=== PATIENT | female | born 1965 | race Caucasian/White ===

== ENCOUNTER 2017-06-24 10:04 | Observation (INO) | payer OTHER ==
[2017-06-24 10:41] LABS: #Eosinphils 0.4 thou/uL (0.0-0.7); #Lymphocytes 2.7 thou/uL (1.20-3.40); #Monocytes 0.9 thou/uL (0.11-0.59); #Neutrophils 5.5 thou/uL (1.40-6.50); %Basophils 0.5 % (0.0-1.0); %Eosinophils 4.6 % (0.0-10.0); %Lymphocytes 28.2 % (21.0-51.0); %Monocytes 9.4 % (0.0-10.0); Hematocrit 43.6 % (36.0-47.0); Mean Platelet Volume 6.8 fL (7.4-10.4); Red Blood Cell (RBC) Count 4.57 mill/uL (4.20-5.40); White Blood Cell (WBC) Count 9.5 thou/uL (4.8-10.8)
[2017-06-24 11:06] LABS: ALT (SGPT) 17 U/L (8-55); AST (SGOT) 16 U/L (5-34); Alkaline Phosphatase 74 U/L (40-150); Anion Gap 13 mmol/L (10-20); BUN (Urea Nitrogen) 14 mg/dL (9.8-20.1); Bilirubin, Total 0.4 mg/dL (0.2-1.2); CK (CPK) 61 U/L (29-168); Calc. Creatinine Clearance 0 mL/min (70-130); Calcium 9.9 mg/dL (7.8-10.44); Carbon Dioxide 24 mmol/L (22-29); Chloride 107 mmol/L (98-107); Estimated GFR-MDRD 70; Globulin 3.4 g/dL (2.4-3.5); Protein, Total 7.8 g/dL (6.0-8.3)
[2017-06-24 11:11] LABS: Troponin I Less than 0.010 ng/mL (< 0.028)
[2017-06-24] MEDS ORDERED: Acetaminophen 500 MG TAB ONE (11:46)
--- NOTE | 2017-06-24 12:03 | RAD ---
AP CHEST: Date: 06-24-17 Comparison: 04-18-12 FINDINGS: AP chest demonstrates the lungs to be well aerated. No evidence of active intrathoracic disease seen . No evidence of effusions, pneumonia or pneumothorax seen. IMPRESSION: Unremarkable AP chest. POS: [facility]
[2017-06-24] MEDS ORDERED: Ondansetron HCl/PF 4 MG/2 ML Vial IVP PRN (14:09)
[2017-06-24] MEDS ORDERED: Zolpidem Tartrate 5 MG TAB PO PRN (14:09)
[2017-06-24] MEDS ORDERED: Loperamide HCl 2 MG CAP PO PRN (14:09)
[2017-06-24] MEDS ORDERED: Loratadine 10 MG TAB PO PRN (14:09)
[2017-06-24] MEDS ORDERED: Eucerin (Mineral Oil/Petrolatum,White) 30 gm Jar TOP PRN (14:09)
[2017-06-24] MEDS ORDERED: Milk Of Magnesia 30 ML UDCUP PO PRN (14:09)
[2017-06-24] MEDS ORDERED: Nitroglycerin 0.4 MG TAB (25 Tab Bottle) SL PRN (14:09)
[2017-06-24] MEDS ORDERED: Ondansetron ODT 4 MG TAB PO PRN (14:09)
[2017-06-24] MEDS ORDERED: Diabetic Tussin 200 MG/10 ML UDCUP PO PRN (14:09)
[2017-06-24] MEDS ORDERED: Cyclobenzaprine 10 MG TAB PO PRN (14:09)
[2017-06-24] MEDS ORDERED: Senokot 8.6 MG TAB PO PRN (14:09)
[2017-06-24] MEDS ORDERED: Acetaminophen 325 MG TAB PO PRN (14:09)
[2017-06-24] MEDS ORDERED: Mag-Al 1200 mg/1200 mg/30 ML UDCUP PO PRN (14:09)
[2017-06-24] MEDS ORDERED: Sodium Chloride 0.65% Nasal 44 ML BOT EA NARE PRN (14:09)
--- NOTE | 2017-06-24 14:10 | HP ---
PRIMARY CARE PHYSICIAN: Flor Harris MD REASON FOR ADMISSION: Dizziness. HISTORY OF PRESENT ILLNESS: A 51-year-old female, who has underlying history of anxiety and depression, as well as chronic headache and hypothyroidism, who came from her workplace for dizziness. The patient reports that she was at work. She was talking to her coworker sudden she felt funny. She felt like she is going to as if in [place]. She was complaining of dizziness. She was feeling weakness. She did not have any focal motor or sensory symptoms on one or other extremity. She felt nausea and funny sensation in her chest. She was feeling weak and she rested in her chair, but after that she was able to go to nurse and nurse looked at her and she was advised to go to the emergency room. Her boss at workplace drove her to ER. The patient saw Dr. King couple of days ago and the patient was taking Inderal 20 mg p.o. daily, but the patient was advised to take metoprolol daily. The patient has not picked up metoprolol yet and she took Inderal 20 mg daily this morning. The patient also had MRI on 06/02/2017, which was also normal. The patient is having headaches are diffuse all the time. The patient denies any fever or chills. She denies any dyspnea on exertion. She denies any real syncope. She denies any palpitations. She denies any UTI symptoms. She denies any constipation, diarrhea, melena, or hematochezia. She denies any diaphoresis. She denies any blurred vision. REVIEW OF SYSTEMS: The following complete review of systems was negative, unless otherwise mentioned in the HPI or below: Constitutional: Weight loss or gain, ability to conduct usual activities. Skin: Rash, itching. Eyes: Double vision, pain. ENT/Mouth: Nose bleeding, neck stiffness, pain, tenderness. Cardiovascular: Palpitations, dyspnea on exertion, orthopnea. Respiratory: Shortness of breath, wheezing, cough, hemoptysis, fever or night sweats. Gastrointestinal: Poor appetite, abdominal pain, heartburn, nausea, vomiting, constipation, or diarrhea. Genitourinary: Urgency, frequency, dysuria, nocturia. Musculoskeletal: Pain, swelling. Neurologic/Psychiatric: Anxiety, depression. Allergy/Immunologic: Skin rash, bleeding tendency. Please see my HPI for pertinent positives and negatives. All other review of systems reviewed and negative except as mentioned in the HPI. PAST MEDICAL HISTORY: Hypertension, hypothyroidism, and history of seizure in 2017. PAST SURGICAL HISTORY: Hysterectomy. PAST PSYCHIATRIC HISTORY: Anxiety and depression. SOCIAL HISTORY: The patient drinks alcohol socially once a week. She denies any smoking. She denies any illicit drug abuse. She is working as a rn case management for disability. FAMILY HISTORY: No strong family history of premature coronary artery disease, stroke or cancer. ALLERGIES: CODEINE SULFATE, REGLAN and ULTRAM. CURRENT HOME MEDICATIONS: Cetirizine 10 mg daily, aspirin 81 mg p.o. daily, oxcarbazepine 150 mg twice daily, Prozac 10 mg p.o. daily, Flexeril 5 mg daily, Inderal 20 mg p.o. daily, and Synthroid 25 mcg p.o. daily. EMERGENCY ROOM COURSE: The patient is given aspirin 325 mg and Tylenol 1 gram. PHYSICAL EXAMINATION: VITAL SIGNS: On arrival, blood pressure 125/82, pulse is variable from 40 to 50 , respiratory rate 16, temperature 97.6, saturation 98% on room air, weight 82.1 kg. GENERAL: The patient is currently alert, awake, no obvious acute distress. HEENT: Head: Normocephalic, atraumatic. Eyes: Pupils round, reactive to light. Extraocular muscles are intact. ENT: Oropharynx within normal limits. Moist mucous membranes. No oral lesions. No pharyngeal erythema, no exudate. NECK: Supple. Range of motion is normal. No meningeal signs of irritation. LUNGS: Clear. CARDIAC: S1, S2, bradycardia. No murmur, no gallop, no rub. ABDOMEN: Soft, bowel sounds present, nontender, nondistended. No organomegaly , no mass, no suprapubic tenderness. BACK: Unremarkable, no CVA tenderness. EXTREMITIES: Upper extremity passive movement of all joints are normal. Lower extremities: No edema. Good peripheral pulsation. SKIN: No skin rash. HEMATOLOGIC: No lymphadenopathy. PSYCHIATRIC: Normal affect. NEUROLOGIC: Nonfocal examination. SIGNIFICANT LABS: EKG showing sinus bradycardia, no ischemic changes. Chest x- ray based on my review, no acute cardiopulmonary process. CBC: WBC 9.5, hemoglobin 14.3, platelets 302. BMP: Sodium 140, potassium 4.3, chloride 107, carbon dioxide 24, anion gap 13, BUN 14, creatinine 0.85, glucose 80, calcium 9.9. LFT: AST 16, ALT 17, alkaline phosphatase 74, albumin 4.4, CK 61, CK-MB 1.0, troponin I less than 0.010, BNP 48.2, lipase 19 and TSH 0.91. ASSESSMENT AND PLAN: 1. Acute dizziness. At this point, only objective finding based on investigation and physical examination is sinus bradycardia and her sinus bradycardia is likely related with the use of propranolol 20 mg daily, which she took this morning. Most likely medication related bradycardia may be contributing to her dizziness. Underlying orthostatic hypotension cannot be entirely excluded, less likely to be any tachycardia or any other arrhythmia. At this point, we will keep this patient in the hospital for observation and will monitor on telemetry floor. We will hold on propranolol therapy. We will do serial cardiac enzymes to rule out acute coronary syndrome. We will also check orthostatic vitals. 2. Chest discomfort. The patient also reported chest discomfort in the emergency room. Her cardiac enzymes negative. Her EKG is not showing any ischemic changes. We will do serial cardiac enzymes. We will consider doing exercise stress test today to rule out any ischemia. We will check lipid profile for risk stratification. 3. Hypertension. Currently, blood pressure runs normal, but if we have to start antihypertensive medication, then we will consider adding lisinopril rather than the beta-ele therapy because of her severe bradycardia. We will monitor vital signs in the hospital. Upon discharge, we will change her blood pressure medication to DIPTI inhibitor. We will also check orthostatic vitals. 4. Anxiety and depression. We will continue Prozac 10 mg p.o. daily. 5. History of seizure. The patient is on oxcarbazepine 150 mg twice daily, which we will continue. 6. History of chronic headache, most likely tension or stress headache. The patient will have a p.r.n. basis headache medication. 7. Hypothyroidism. We will continue Synthroid 25 mcg p.o. daily. 8. Deep venous thrombosis prophylaxis not needed because we are expecting discharge in 24 hours. 9. Gastrointestinal prophylaxis, Pepcid 20 mg p.o. b.i.d. 9. Code status: The patient is FULL CODE. The patient does not have any surrogate decision maker. Disposition plan based on clinical course likely within 24 hours. Plan of care discussed with the patient at bedside in the emergency room. LEANNA
[2017-06-24 14:19] VITALS: BMI 29.8
[2017-06-24 15:19] LABS: Troponin I Less than 0.010 ng/mL (< 0.028)
[2017-06-24] MEDS: HYDROcodone/Acetaminophen 5/325 mg Tablet PO PRN (17:00)
[2017-06-24 18:25] LABS: Troponin I Less than 0.010 ng/mL (< 0.028)
[2017-06-24] MEDS ORDERED: FLU VACC QS2017-18 36 mo. & older 0.5 ML SYRINGE IM ONE (21:00)
[2017-06-24] MEDS: OXcarbazepine 150 MG TAB PO SCH (21:18)
[2017-06-24] MEDS: Famotidine 20 MG TAB PO SCH (21:19)
[2017-06-24] MEDS ORDERED: diphenhydrAMINE HCl 25 MG CAP PO PRN (23:21)
[2017-06-25] MEDS: HYDROcodone/Acetaminophen 5/325 mg Tablet PO PRN (04:35)
[2017-06-25] MEDS ORDERED: Levothyroxine Sodium 25 MCG TAB PO SCH (06:00)
[2017-06-25] MEDS ORDERED: Aspirin 325 MG TAB PO SCH (09:00)
[2017-06-25] MEDS ORDERED: FLUoxetine HCl 10 MG CAP PO SCH (09:00)
[2017-06-25] MEDS: OXcarbazepine 150 MG TAB PO SCH (11:11)
[2017-06-25] MEDS: Famotidine 20 MG TAB PO SCH (11:12)
[2017-06-25 13:21] VITALS: BP 109/72; TEMP 98
--- NOTE | 2017-06-25 13:37 | NM ---
NUCLEAR MEDICINE CARDIAC PERFUSION EXAM WITH EJECTION FRACTION COMPARISON: 04/19/2012 HISTORY: A 51-year-old female with chest pain and hypertension. TECHNIQUE: A 2-day nuclear medicine cardiac perfusion examination was performed. Rest images were obtained usi ng 30 mCi of Technetium 99m sestamibi. Stress images were obtained giving 32 mCi of Technetium 99m sestamibi after peak of exercise on a treadmill using a Jefry protocol. The patient achieved 93% ma ximum predicted heart rate. FINDINGS: Tomographic images show no fixed or reversible perfusion defects. Gated images show normal wall mot ion with an ejection fraction greater than 70%. EDV is 68 mL. LHR is 0.4. TID is 0.9. IMPRESSION: No evidence of ischemia. POS: [facility]
--- NOTE | 2017-06-25 15:57 | DIS ---
DATE OF ADMISSION: 06/24/2017 DATE OF DISCHARGE: 06/25/2017 DISCHARGE DIAGNOSES: 1. Noncardiac chest pain. 2. Presyncope, possibly orthostasis due to her home medication which had been changed, but she had not picked up the new one and continued on the old one. 3. Hypertension, essential. 4. History of anxiety with depression. 5. Seizure disorder. 6. Chronic headaches. 7. Hypothyroidism. CONSULTATIONS: None. PROCEDURES: A treadmill nuclear stress test on 06/24/2017 and 06/25/2017 that was negative for reve rsible ischemia. HISTORY OF PRESENT ILLNESS: Ms. Garcia is a 52-year-old female admitted from the ER after [facility] for dizziness. The patient has been switched off her Inderal to metoprolol, but had not picked u p the new medication so continued on her Inderal. After taking her propranolol, she said she became dizzy, as she had been having off and on, came to the emergency department for evaluation. Workup in the ER was unremarkable. We were asked to admit for further workup. HOSPITAL COURSE: The patient was seen and examined by Dr. Ricci in the emergency department and hector daniels in observation in the hospital. Serial cardiac biomarkers were unremarkable. EKG was normal. Labs remained normal. She was stopped on her Inderal and continued on metoprolol p.o. Overnight 06/24/2017 to 06/25/2017 she remained stable without any further episodes. Headache was stable for her chronic headaches. She underwent a cardiac stress testing that was negative for reducible ische dayday and today was feeling better and stable for discharge with outpatient followup. PHYSICAL EXAMINATION: The patient was seen and examined at the bedside. Discharge plan and disposition was discussed with the patient face to face. DISCHARGE MEDICATIONS: 1. Aspirin 81 mg daily. 2. Butalbital, acetaminophen caffeine 1 p.o. q.6 h. p.r.n. 3. Cetirizine 5/120 1 p.o. q.12 hours. 4. Cyclobenzaprine 5 mg daily. 5. Fluoxetine 10 mg daily. 6. Levothyroxine 25 mcg daily. 7. Metoprolol tartrate 25 mg p.o. b.i.d. 8. Trileptal 150 mg p.o. b.i.d. FOLLOWUP APPOINTMENTS: 1. Primary care physician within a week with Dr. Harris. 2. Follow up with Dr. King per his clinic schedule. DISCHARGE CONDITION: Stable. DISPOSITION: The patient is being discharged to home via private vehicle with a family member.
--- NOTE | 2017-06-26 14:48 | EKG ---
Test Reason : Blood Pressure : / mmHG Vent. Rate : 053 BPM Atrial Rate : 053 BPM P-R Int : 198 ms QRS Dur : 072 ms QT Int : 434 ms P-R-T Axes : 044 018 045 degrees QTc Int : 407 ms Sinus bradycardia Otherwise normal ECG Confirmed by STEPHEN HARDIN, SUDHAKAR Dewey ([id number]), story editor MICHELLE MULLINS ([id number]) on 06/26/2017 2:48:33 PM Referred By: STEPHEN Confirmed By:SUDHAKAR MITCHELL MD
== END 2017-06-25 13:42 | disposition home or self-care (01) ==
LOC: ERS 10:04 → 2SW 11:45
PROVIDERS: ADMIT Internal Medicine; ATTEND Internal Medicine
DX: R07.89 Other chest pain (principal); R55 Syncope and collapse; I10 Essential (primary) hypertension; F41.8 Other specified anxiety disorders; G40.909 Epilepsy, unspecified, not intractable, without status epilepticus; R51 Headache; E03.9 Hypothyroidism, unspecified; Z79.82 Long term (current) use of aspirin; Z79.899 Other long term (current) drug therapy; Z88.5 Allergy status to narcotic agent; Z88.8 Allergy status to other drugs, medicaments and biological substances; Z90.710 Acquired absence of both cervix and uterus
CPT/HCPCS: 36415; 71010; 78452; 80053; 80061; 82550; 82553; 83690; 83735; 83880; 84443; 84484; 85025; 90471; 90682; 93005; 93017; A9500; G0008; G0378; Q2036

== ENCOUNTER 2018-10-24 10:12 | Outpatient (CLI) | payer OTHER ==
--- NOTE | 2018-10-24 14:19 | MRI ---
PRE AND POST CONTRAST ENHANCED MRI BRAIN: History: Seizures. FINDINGS: Images demonstrate an old area of stroke in the right periventricular white matter and in the right b simin of the caudate. No evidence of areas of diffusion restriction seen. No abnormal areas of intracranial enhancement seen. Ventricles are of normal size. No evidence of subarachnoid hemorrhage seen. Normal flow voids seen in the major intracranial vessels. The orbits are unremarkable. IMPRESSION: Unremarkable pre and post contrast enhanced MRI images of the brain. 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 No acute intracranial abnormalities seen. POS: [facility]
== END 2018-10-24 10:13 | disposition home or self-care (01) ==
LOC: SCSMRI 10:12
PROVIDERS: ATTEND Nurse Practitioner Acute Care
DX: R20.2 Paresthesia of skin (principal)
CPT/HCPCS: 70553

== ENCOUNTER 2019-02-14 13:04 | Outpatient (CLI) | payer OTHER ==
--- NOTE | 2019-02-14 13:49 | ULT ---
US Thyroid STANDARD History: [Thyroid goiter] Comparison: None. Findings: Isthmus measures 2 mm in AP dimension. Right lobe measures 3.3 x 1.3 x 1.3 cm and the left lobe measures 3.3 x 1.3 x 1.3 cm. Normal vascularity. No abnormal nodules. There is a 9 mm parathyroid gland posterior to the inferior pole right lobe of thyroid. Likely reacti ve left subclavicular lymph nodes. Impression: No evidence of abnormal thyroid nodules. Normal appearance of the thyroid.
== END 2019-02-14 13:05 | disposition home or self-care (01) ==
LOC: SCSULT 13:04
PROVIDERS: ATTEND Family Medicine
DX: E04.9 Nontoxic goiter, unspecified (principal)
CPT/HCPCS: 76536

== ENCOUNTER 2021-03-03 13:29 | Observation (INO) | payer OTHER, SELFPAY ==
[2021-03-03] MEDS ORDERED: methylPREDNISolone Sod Succ/PF 125 MG/2 ML VIAL ONE (15:48)
[2021-03-03] MEDS ORDERED: diphenhydrAMINE 50 MG/ML VIAL ONE (15:48)
[2021-03-03] MEDS ORDERED: Magnesium 2 GM/50 ML BAG (IN WATER) ONE (15:48)
[2021-03-03] MEDS ORDERED: Ketorolac Tromethamine 30 MG/ML VIAL ONE (15:48)
[2021-03-03] MEDS ORDERED: Ketamine 50 MG/ML (10ML VIAL) ONE (17:19)
[2021-03-03 17:26] LABS: Bilirubin Negative (Negative); Blood, Urine Negative (Negative); Clarity Clear (Clear); Glucose, Urine (Dipstick) Normal (Negative); Ketone, Urine Negative (Negative); Leukocyte Negative Leu/uL (Negative); Nitrite Negative (Negative); Protein, Urine (Dipstick) Negative (Neg-Trace); Specific Gravity, Urine 1.006 (1.002-1.036); Urobilinogen Normal mg/dL (Less than 2)
[2021-03-03 17:27] LABS: #Eosinphils 0.2 thou/uL (0.0-0.7); #Lymphocytes 2.3 thou/uL (1.20-3.40); #Monocytes 0.6 thou/uL (0.11-0.59); #Neutrophils 8.7 thou/uL (1.40-6.50); %Basophils 0.1 % (0.0-1.0); %Eosinophils 1.8 % (0.0-10.0); %Lymphocytes 19.6 % (21.0-51.0); %Monocytes 4.9 % (0.0-10.0); %Neutrophils 73.5 % (42.0-75.0); Hemoglobin 13.5 g/dL (12.0-16.0); Mean Corpuscular HGB CONC 32.4 g/dL (32.0-36.0); Mean Corpuscular Hemoglobin 30.4 pg (27.0-31.0); Mean Corpuscular Volume 93.7 fL (78.0-98.0); Mean Platelet Volume 7.1 fL (7.4-10.4); Platelet Count 270 thou/uL (130-400); Red Blood Cell (RBC) Count 4.44 mill/uL (4.20-5.40); White Blood Cell (WBC) Count 11.9 thou/uL (4.8-10.8)
[2021-03-03 18:06] LABS: ALT (SGPT) 16 U/L (8-55); AST (SGOT) 18 U/L (5-34); Albumin 4.7 g/dL (3.5-5.0); Alkaline Phosphatase 93 U/L (40-110); Anion Gap 14 mmol/L (10-20); BUN (Urea Nitrogen) 13 mg/dL (9.8-20.1); Bilirubin, Total 0.5 mg/dL (0.2-1.2); Calc. Creatinine Clearance 0 mL/min (70-130); Calcium 10.1 mg/dL (7.8-10.44); Carbon Dioxide 25 mmol/L (22-29); Chloride 105 mmol/L (98-107); Globulin 3.3 g/dL (2.4-3.5); Glucose 87 mg/dL (70-105); Potassium 3.7 mmol/L (3.5-5.1); Sodium 140 mmol/L (136-145)
[2021-03-03 18:41] LABS: Acetaminophen Less than 6.0 mcg/mL (10.0-30.0); Alcohol Less than 10 mg/dL (Less than 10); Salicylate Less than 8.0 mg/dL (15.0-30.0)
[2021-03-03] MEDS ORDERED: Fentanyl 100 MCG/2 ML VIAL ONE (19:12)
[2021-03-03 19:40] LABS: Amphetamine Not Detected (NotDetected); Barbiturates Screen Not Detected (NotDetected); Benzodiazepine Screen Not Detected (NotDetected); Cocaine Metabolite Screen Not Detected (NotDetected); Medtox Reader # READER 4; Methadone Not Detected (NotDetected); Methamphetamine Not Detected (NotDetected); Opiate Screen Not Detected (NotDetected); Oxycodone Screen Not Detected (NotDetected); Phencyclidine (PCP) Not Detected (NotDetected); THC/Cannabinoid Screen Not Detected (NotDetected); Tricyclic Screen Not Detected (NotDetected)
[2021-03-03 19:41] LABS: Medtox Control Line Valid? VALID (VALID)
[2021-03-04] MEDS ORDERED: Acetaminophen 325 MG TAB PO PRN (01:04)
[2021-03-04] MEDS ORDERED: Promethazine HCl 12.5 MG in Sodium Chloride 0.9% 50 ML IVPB PRN (01:09)
[2021-03-04] MEDS ORDERED: Ketorolac Tromethamine 30 MG/ML VIAL ONE ×2 (02:23→11:04)
[2021-03-04] MEDS: Sodium Chloride 0.9% 1,000 ML IV SCH ×2 (02:29→17:37)
[2021-03-04] MEDS: Ketorolac Tromethamine 30 MG/ML VIAL IVP PRN ×2 (02:29→11:17)
[2021-03-04 05:57] LABS: #Lymphocytes 1.3 thou/uL (1.20-3.40); #Monocytes 0.3 thou/uL (0.11-0.59); #Neutrophils 11.1 thou/uL (1.40-6.50); %Basophils 0.3 % (0.0-1.0); %Eosinophils 0.2 % (0.0-10.0); %Lymphocytes 10.3 % (21.0-51.0); %Monocytes 2.6 % (0.0-10.0); %Neutrophils 86.7 % (42.0-75.0); Hemoglobin 12.3 g/dL (12.0-16.0); Mean Corpuscular HGB CONC 33.1 g/dL (32.0-36.0); Mean Corpuscular Hemoglobin 31.2 pg (27.0-31.0); Mean Corpuscular Volume 94.2 fL (78.0-98.0); Mean Platelet Volume 7.1 fL (7.4-10.4); Platelet Count 252 thou/uL (130-400); RBC Distribution Width 11.9 % (11.5-14.5); Red Blood Cell (RBC) Count 3.96 mill/uL (4.20-5.40); White Blood Cell (WBC) Count 12.8 thou/uL (4.8-10.8)
[2021-03-04 06:21] LABS: Anion Gap 11 mmol/L (10-20); BUN (Urea Nitrogen) 12 mg/dL (9.8-20.1); Calc. Creatinine Clearance 0 mL/min (70-130); Calcium 9.5 mg/dL (7.8-10.44); Carbon Dioxide 23 mmol/L (22-29); Cardiac Risk 3.2 (Less than 4.5); Chloride 110 mmol/L (98-107); Cholesterol 184 mg/dl (< 200 Desired); Glucose 125 mg/dL (70-105); HDL Cholesterol 57 mg/dL (>60 Neg Risk); LDL Cholesterol, Calculated 115 mg/dL; Potassium 4.4 mmol/L (3.5-5.1); Sodium 140 mmol/L (136-145); Triglycerides 62 mg/dL (Less than 150)
[2021-03-04] MEDS: Ketorolac Tromethamine 30 MG/ML VIAL IVP SCH ×2 (14:11→19:31)
[2021-03-04] MEDS ORDERED: diphenhydrAMINE 50 MG/ML VIAL ONE (14:41)
[2021-03-04] MEDS: Prochlorperazine 10 MG/2 ML VIAL IVP SCH ×2 (14:47→19:31)
[2021-03-04] MEDS: diphenhydrAMINE 50 MG/ML VIAL IVP SCH ×2 (14:47→19:31)
[2021-03-04 17:56] LABS: SARS-CoV-2 NAA Rapid Test Not Detected (NotDetected)
[2021-03-04 19:54] VITALS: BMI 27.4
[2021-03-04] MEDS ORDERED: lamoTRIgine 25 MG TAB PO SCH (21:00)
[2021-03-04] MEDS: Metoprolol Tartrate 25 MG TAB PO SCH (21:22)
[2021-03-05] MEDS: diphenhydrAMINE 50 MG/ML VIAL IVP SCH ×2 (00:11→06:00)
[2021-03-05] MEDS: Ketorolac Tromethamine 30 MG/ML VIAL IVP SCH ×2 (00:12→05:59)
[2021-03-05] MEDS: Prochlorperazine 10 MG/2 ML VIAL IVP SCH ×2 (00:12→06:00)
[2021-03-05] MEDS ORDERED: lamoTRIgine 25 MG TAB PO SCH (09:00)
[2021-03-05] MEDS ORDERED: FLUoxetine HCl 10 MG CAP PO SCH (09:00)
[2021-03-05] MEDS ORDERED: FLUoxetine HCl 20 MG CAP PO SCH (09:00)
[2021-03-05] MEDS ORDERED: lamoTRIgine 100 MG TAB PO SCH (09:00)
[2021-03-05] MEDS: Metoprolol Tartrate 25 MG TAB PO SCH (09:41)
[2021-03-05] MEDS: Zonisamide 100 MG CAP PO SCH ×2 (09:50→09:56)
[2021-03-05] MEDS: Sodium Chloride 0.9% 1,000 ML IV SCH (09:51)
[2021-03-05 11:42] VITALS: BP 100/68; TEMP 98.4
[2021-03-05] MEDS ORDERED: Zonisamide 100 MG CAP PO SCH (21:00)
[2021-03-06] MEDS ORDERED: Levothyroxine Sodium 25 MCG TAB PO SCH (06:00)
== END 2021-03-05 16:19 | disposition home or self-care (01) ==
LOC: ERS 13:29 → ERHOLD 21:45 → 2SE 03-04 18:24
PROVIDERS: ADMIT Student in an Organized Health Care Education/Training Program; ATTEND Student in an Organized Health Care Education/Training Program
DX: R51.9 Headache, unspecified (principal); R45.851 Suicidal ideations; G40.909 Epilepsy, unspecified, not intractable, without status epilepticus; M79.7 Fibromyalgia; E03.9 Hypothyroidism, unspecified; I10 Essential (primary) hypertension; F10.21 Alcohol dependence, in remission; F14.11 Cocaine abuse, in remission; H53.8 Other visual disturbances; F43.9 Reaction to severe stress, unspecified; F51.04 Psychophysiologic insomnia; Z87.891 Personal history of nicotine dependence; Z91.14 Patient's other noncompliance with medication regimen; Z79.82 Long term (current) use of aspirin; Z79.899 Other long term (current) drug therapy; Z88.5 Allergy status to narcotic agent; Z88.8 Allergy status to other drugs, medicaments and biological substances; Z20.822 Contact with and (suspected) exposure to COVID-19
CPT/HCPCS: 36415; 70450; 70551; 80048; 80053; 80061; 80306; 80307; 81003; 84443; 85025; 85652; 86140; 96365; 96367; 96374; 96375; 96376; G0378; J0780; J1200; J1885; J2930; J3010; J3475; U0002; U0005

== ENCOUNTER 2022-11-05 15:55 | Inpatient (IN) | payer SELFPAY ==
[2022-11-05] MEDS ORDERED: Lorazepam 2 MG/ML VIAL SLOW IVP PRN (19:32)
[2022-11-05 19:48] VITALS: BMI 25.8
[2022-11-05] MEDS: Atorvastatin Calcium 40 MG TAB PO SCH (20:20)
[2022-11-05] MEDS ORDERED: Ondansetron ODT 4 MG TAB PO PRN (21:11)
[2022-11-05] MEDS ORDERED: Senokot S 8.6-50 MG TAB PO PRN (21:11)
[2022-11-05] MEDS: carBAMazepine 200 MG TAB PO SCH (22:05)
[2022-11-05] MEDS: Zonisamide 100 MG CAP PO SCH (22:06)
[2022-11-05] MEDS: QUEtiapine 100 MG TAB PO SCH (22:06)
[2022-11-06 04:36] LABS: #Eosinphils 0.3 thou/uL (0.0-0.7); #Lymphocytes 2.1 thou/uL (1.20-3.40); #Monocytes 0.6 thou/uL (0.11-0.59); #Neutrophils 4.2 thou/uL (1.40-6.50); %Basophils 0.3 % (0.0-1.0); %Eosinophils 4.1 % (0.0-10.0); %Lymphocytes 28.5 % (21.0-51.0); %Monocytes 8.3 % (0.0-10.0); %Neutrophils 58.7 % (42.0-75.0); Hemoglobin 10.5 g/dL (12.0-16.0); Mean Corpuscular HGB CONC 33.1 g/dL (32.0-36.0); Mean Corpuscular Volume 96.7 fl (78.0-98.0); Mean Platelet Volume 6.7 fL (7.4-10.4); Platelet Count 225 10x3/uL (130-400); RBC Distribution Width 12.7 % (11.5-14.5); Red Blood Cell (RBC) Count 3.28 mill/uL (4.20-5.40); White Blood Cell (WBC) Count 7.2 10x3/uL (4.8-10.8)
[2022-11-06 05:09] LABS: Anion Gap 9 mmol/L (10-20); BUN (Urea Nitrogen) 17 mg/dL (9.8-20.1); Calc. Creatinine Clearance 94 mL/min (70-130); Calcium 8.9 mg/dL (7.8-10.44); Carbon Dioxide 26 mmol/L (22-29); Cardiac Risk 2.6 (Less than 4.5); Chloride 111 mmol/L (98-107); Cholesterol 192 mg/dl (< 200 Desired); Estimated GFR 96; Glucose 97 mg/dL (70-105); HDL Cholesterol 73 mg/dL (>60 Neg Risk); LDL Cholesterol, Calculated 95 mg/dL; Magnesium 2.2 mg/dL (1.6-2.6); Potassium 4.1 mmol/L (3.5-5.1); Sodium 142 mmol/L (136-145); Triglycerides 122 mg/dL (Less than 150)
[2022-11-06] MEDS: Levothyroxine Sodium 50 MCG TAB PO SCH (05:28)
[2022-11-06] MEDS: Famotidine 20 MG TAB PO SCH ×2 (09:26→20:24)
[2022-11-06] MEDS: Aspirin 81 mg Enteric Coated Tablet PO SCH (09:26)
[2022-11-06] MEDS: Acetaminophen 325 MG TAB PO PRN ×3 (09:27→23:47)
[2022-11-06] MEDS: Loratadine 10 MG TAB PO SCH (09:27)
[2022-11-06] MEDS: FLUoxetine HCl 20 MG CAP PO SCH (09:27)
[2022-11-06] MEDS: Atorvastatin Calcium 40 MG TAB PO SCH (20:23)
[2022-11-06] MEDS: Zonisamide 100 MG CAP PO SCH (20:24)
[2022-11-06] MEDS: QUEtiapine 100 MG TAB PO SCH (20:24)
[2022-11-06] MEDS: carBAMazepine 200 MG TAB PO SCH (20:24)
[2022-11-06] MEDS ORDERED: Zonisamide 100 MG CAP PO SCH (21:00)
[2022-11-07] MEDS: Levothyroxine Sodium 50 MCG TAB PO SCH (05:52)
[2022-11-07 06:02] LABS: #Eosinphils 0.3 thou/uL (0.0-0.7); #Lymphocytes 1.9 thou/uL (1.20-3.40); #Monocytes 0.6 thou/uL (0.11-0.59); #Neutrophils 4.1 thou/uL (1.40-6.50); %Basophils 0.7 % (0.0-1.0); %Eosinophils 4.6 % (0.0-10.0); %Lymphocytes 27.7 % (21.0-51.0); %Monocytes 8.5 % (0.0-10.0); %Neutrophils 58.6 % (42.0-75.0); Hemoglobin 11.1 g/dL (12.0-16.0); Mean Corpuscular HGB CONC 32.8 g/dL (32.0-36.0); Mean Corpuscular Hemoglobin 31.7 pg (27.0-31.0); Mean Corpuscular Volume 96.6 fl (78.0-98.0); Mean Platelet Volume 6.9 fL (7.4-10.4); Platelet Count 221 10x3/uL (130-400); RBC Distribution Width 12.8 % (11.5-14.5); White Blood Cell (WBC) Count 6.9 10x3/uL (4.8-10.8)
[2022-11-07 06:09] LABS: Anion Gap 12 mmol/L (10-20); BUN (Urea Nitrogen) 17 mg/dL (9.8-20.1); Calc. Creatinine Clearance 89 mL/min (70-130); Calcium 9.4 mg/dL (7.8-10.44); Carbon Dioxide 24 mmol/L (22-29); Chloride 110 mmol/L (98-107); Estimated GFR 90; Glucose 99 mg/dL (70-105); Potassium 4.7 mmol/L (3.5-5.1); Sodium 141 mmol/L (136-145)
[2022-11-07] MEDS: Famotidine 20 MG TAB PO SCH ×2 (09:12→20:04)
[2022-11-07] MEDS: FLUoxetine HCl 20 MG CAP PO SCH (09:12)
[2022-11-07] MEDS: Loratadine 10 MG TAB PO SCH (09:12)
[2022-11-07] MEDS: Aspirin 81 mg Enteric Coated Tablet PO SCH (09:12)
[2022-11-07] MEDS: Acetaminophen 325 MG TAB PO PRN ×4 (09:13→23:45)
[2022-11-07] MEDS ORDERED: Iopamidol-370 76% 500 ML 1 ML ONE (12:49)
[2022-11-07] MEDS ORDERED: Dextrose 5% in Water 1,000 ML IV PRN (14:07)
[2022-11-07] MEDS ORDERED: Dextrose 50% Abboject 50 ML SYRINGE SLOW IVP PRN (14:07)
[2022-11-07 14:50] LABS: Free T4 (Free Thyroxine) 1.06 ng/dL (0.70-1.48)
[2022-11-07] MEDS ORDERED: Cosyntropin 250 MCG VIAL SLOW IVP SCH (16:00)
[2022-11-07] MEDS: Zonisamide 100 MG CAP PO SCH (20:03)
[2022-11-07] MEDS: Atorvastatin Calcium 40 MG TAB PO SCH (20:04)
[2022-11-07] MEDS: QUEtiapine 100 MG TAB PO SCH (20:04)
[2022-11-07] MEDS: carBAMazepine 200 MG TAB PO SCH (20:05)
[2022-11-08] MEDS ORDERED: Simethicone Chewable 80 MG TAB PO SCH (04:45)
[2022-11-08] MEDS: Acetaminophen 325 MG TAB PO PRN ×2 (05:15→09:03)
[2022-11-08] MEDS: Levothyroxine Sodium 50 MCG TAB PO SCH (05:15)
[2022-11-08 06:56] LABS: #Eosinphils 0.3 thou/uL (0.0-0.7); #Lymphocytes 1.9 thou/uL (1.20-3.40); #Monocytes 0.6 thou/uL (0.11-0.59); #Neutrophils 4.3 thou/uL (1.40-6.50); %Basophils 0.4 % (0.0-1.0); %Eosinophils 4.4 % (0.0-10.0); %Lymphocytes 26.4 % (21.0-51.0); %Monocytes 7.9 % (0.0-10.0); %Neutrophils 60.9 % (42.0-75.0); Hemoglobin 11.9 g/dL (12.0-16.0); Mean Corpuscular Hemoglobin 31.8 pg (27.0-31.0); Mean Corpuscular Volume 96.3 fl (78.0-98.0); Mean Platelet Volume 6.6 fL (7.4-10.4); Platelet Count 225 10x3/uL (130-400); RBC Distribution Width 12.7 % (11.5-14.5); Red Blood Cell (RBC) Count 3.74 mill/uL (4.20-5.40); White Blood Cell (WBC) Count 7.1 10x3/uL (4.8-10.8)
[2022-11-08 07:17] LABS: Anion Gap 13 mmol/L (10-20); BUN (Urea Nitrogen) 24 mg/dL (9.8-20.1); Calc. Creatinine Clearance 79 mL/min (70-130); Calcium 9.1 mg/dL (7.8-10.44); Carbon Dioxide 23 mmol/L (22-29); Chloride 107 mmol/L (98-107); Estimated GFR 79; Glucose 98 mg/dL (70-105); Potassium 4.5 mmol/L (3.5-5.1); Sodium 138 mmol/L (136-145)
[2022-11-08] MEDS: FLUoxetine HCl 20 MG CAP PO SCH (09:06)
[2022-11-08] MEDS: Aspirin 81 mg Enteric Coated Tablet PO SCH (09:06)
[2022-11-08] MEDS: Famotidine 20 MG TAB PO SCH (09:06)
[2022-11-08] MEDS: Loratadine 10 MG TAB PO SCH (09:06)
[2022-11-08 12:24] VITALS: BP 120/76; TEMP 96.4
[2022-11-08] MEDS ORDERED: Ketorolac Tromethamine 10 MG TAB PO SCH (13:01)
[2022-11-08] MEDS ORDERED: Sodium Chloride 0.9% 500 ML IV SCH (13:15)
== END 2022-11-08 16:57 | disposition home or self-care (01) | DRG 101 ==
LOC: INTOOBSV 19:07 → NEURO 19:07 → OBSVTOIN 11-06 17:19
PROVIDERS: ADMIT Hospitalist; ATTEND Internal Medicine
PROC: 4A10X4Z Monitoring of Central Nervous Electrical Activity, External Approach (ICD-10-PCS; principal; 2022-11-06)
DX: G40.909 Epilepsy, unspecified, not intractable, without status epilepticus (principal); G45.9 Transient cerebral ischemic attack, unspecified; E16.2 Hypoglycemia, unspecified; E03.9 Hypothyroidism, unspecified; I10 Essential (primary) hypertension; F32.A Depression, unspecified; F41.9 Anxiety disorder, unspecified; M79.7 Fibromyalgia; Z20.822 Contact with and (suspected) exposure to COVID-19; Z88.5 Allergy status to narcotic agent; Z90.710 Acquired absence of both cervix and uterus; Z88.8 Allergy status to other drugs, medicaments and biological substances; Z79.82 Long term (current) use of aspirin; Z79.899 Other long term (current) drug therapy
CPT/HCPCS: 36415; 36416; 70551; 74160; 80048; 80061; 80203; 80400; 82533; 83525; 83735; 84439; 84443; 84481; 84681; 85025; 93306; 95712; 95819; 95957; G0378; J0834; J7030; Q9967; U0003; U0005